=== PATIENT | male | born 1960 | race Caucasian/White ===

== ENCOUNTER → 2017-11-16 | Outpatient (CLI) | payer OTHER ==
[~2017-11-16] MED LIST: D3 + K2 DOTS 11 EACH PO; DHEA25 MG PO; FISH OIL 1,001000 M2 PO; GLUCOPHAGE XR750 MG PO; MUCINEX600 MG PO; MULTIVITAMINS1 EAC7 PO; MUPIROCIN22 GM TOP; PERCOCET 10-321 EACH PO; TESTONE CI200 MG/1 M IM; XARELTO10 MG PO; [UNRECOGNIZED DRUG - OTHER] PO
--- NOTE | ~2017-11-16 | PFR/MVV ---
[facility] [place] [address] PULMONARY FUNCTION MVV/REPORT Name: RAUL MARKS Room #: [facility]#: [id number] Admission: 11/16/17 Attend Phys: Tunde Cullen MD, [facility] Discharge: Date of : 56 Report #: [id number] THIS REPORT FOR: //name// >> SPIROMETRY: (BTPS) Height: 68 in cm Weight: 227 lbs kg Exam Date: 11/16/17 PRE-RX POST-RX PRED BEST %PRED BEST %PRED %CHG FVC LITERS . 4.06 . 3.79 . 93 . 3.77 . 93 . -0 FEV1 LITERS . 3.274 . 3.19 . 98 . 3.22 . 99 . 1 FEV1/FVC % . 80 . 84 . 105 . 85 . 106 . 1 GVF26-08% L/Sec . 3.369 . 4.01 . 120 . 4.46 . 133 . 11 PEF L/SEC . 8.17 . 9.95 . 122 . 11.22 . 137 . 13 FEF50/FIF50 UNITLESS . <1.00 . 1.56 . . 1.47 . . -6 MVV L/Min . 135 . 79 . 59 f 1/Min . . 120 . >> LUNG VOLUMES: (BTPS) PRE-RX POST-RX PRED AVG %PRED AVG %PRED %CHG VC Liters . 4.06 . 3.81 . 94 . . . TLC Liters . 6.20 . 6.10 . 98 . . . RV Liters . 2.22 . 2.29 . 103 . . . RV/TLC % . 37 . 38 . 102 . . . FRC PL Liters . 3.03 . 3.45 . 114 . . . FRC N2 Liters . 3.03 . . . . . ERV Liters . . 1.16 . . . . IC Liters . . 2.68 . . . . >> DIFFUSION: DLCO ml/Min/mmHg . 26.2 . 21.0 . 80 . . . DL Negro ml/Min/mmHg . 26.2 . 21.0 . 80 . . . DLCO/VA ml/Min/mmHg . 3.91 . 4.74 . 121 . . . VA Liters . . 4.44 . . . . COMMENTS: COMMENTS: >> RESISTANCE: [facility] [address] [facility] [place] [address] PULMONARY FUNCTION MVV/REPORT Name: RAUL MARKS Room #: [facility]#: [id number] Admission: 11/16/17 Attend Phys: Tunde Cullen MD, [facility] Discharge: Date of : 56 Report #: [id number] PRE-RX PRED AVG %PRED Raw Total cmH20/L/Sec . . 3.41 . Raw Insp cmH20/L/Sec . . 6.19 . Raw Exp cmH20/L/Sec . . 5.37 . Raw cmH20/L/Sec . 1.55 . 1.05 . 68 Gaw L/Sec/cmH20 . 0727 . 0.951 . 131 sRaw cmH20 Sec . 4.70 . 3.65 . 78 sGaw l/cmH20 Sec . 0.213 . 0.274 . 129 Vtq Liters . . 3.47 . # = OUTSIDE 95% CONFIDENCE INTERVAL CALIBRATION: PRED: 3.00 ACTUAL: EXP 3.01 INSP 3.02 [facility]-OL10-06 [facility]-05 N-[id number] >> INTERPRETATION/IMPRESSION: CC: Tunde Cullen MD [facility] Sridhar Nava Spirometric examination showed normal flows. There was no significant bronchodilator response. Lung volumes were normal. Diffusion capacity is normal. Flow volume loop is normal. Normal pulmonary functions. <ELECTRONICALLY SIGNED> By: Israel Bass MD 01/03/18 1449 Israel Bass MD /nt
== END ==
LOC: PUL 09:22
DX: I50.9 Heart failure, unspecified (principal)